=== PATIENT | female | born 1980 | race Caucasian/White ===

== ENCOUNTER → 2021-10-16 15:00 | Outpatient (CLI) | payer BC, SELFPAY ==
--- NOTE | 2021-10-16 15:06 | XR_ITS ---
FINAL REPORT CLINICAL HISTORY: shoulder pain FINDINGS: LEFT SHOULDER Three views demonstrate no acute fracture or dislocation. There is mild AC joint degenerative change. The visualized bony structures are well aligned. No soft tissue abnormality is seen. IMPRESSION: Mild AC joint degenerative change. Reviewed, Interpreted and Dictated by Triston Bejarano III, MD Transcribed by Vicente Phillip Authenticated and [facility]
--- NOTE | 2021-10-16 15:06 | XR_ITS ---
FINAL REPORT CLINICAL HISTORY: shoulder pain FINDINGS: RIGHT SHOULDER: 3 views of the right shoulder were obtained. There is no acute fracture or dislocation. There is mild AC joint degenerative change. There is no soft tissue abnormality. IMPRESSION: Mild AC joint degenerative change. Reviewed, Interpreted and Dictated by Triston Bejarano III, MD Transcribed by Vicente Phillip Authenticated and . [facility]
== END ==
PROVIDERS: PCP Nurse Practitioner Family; Visit Provider Orthopaedic Surgery
DX: M25.512 Pain in left shoulder (principal); M25.511 Pain in right shoulder
CPT/HCPCS: 73030